=== PATIENT | female | born 1975 | race Caucasian/White ===

== ENCOUNTER 2017-12-04 09:58 | Emergency (ER) | END 2017-12-04 13:05 | disposition home or self-care (01) ==

== ENCOUNTER 2018-04-29 23:22 | Emergency (ER) | END 2018-04-30 04:30 | disposition home or self-care (01) ==

== ENCOUNTER 2018-09-17 14:24 | Emergency (ER) | payer MEDICAID ==
[~2018-09-17] VITALS: Wt 59.0 kg
[~2018-09-17 14:24] MED LIST: AMLO-147 PO; BECL10.62 IH; CHOL100062 PO; CYCL5TAB PO; FLUT9.9S NASAL; HYDR-4011 PO; IBUP-1544 PO; MAGN400T28 PO; MECL-77 PO; METR70GE15 VAG; OMEP20CA16 PO
[2018-09-17] MEDS ORDERED: SOD CHLORIDE 0.9% 500 ML IV STA (16:53)
[2018-09-17] MEDS ORDERED: ONDANSETRON 4 MG INJ IV STA (16:53)
[2018-09-17] MEDS ORDERED: morphine 4 MG/ML VIAL IV STA (16:53)
[2018-09-17] MEDS ORDERED: ENALAPRILAT 1.25 MG INJ IV ONE (17:00)
[2018-09-17] MEDS ORDERED: BENA40TA56 PO (17:55)
[2018-09-17] MEDS ORDERED: METR45CR2 TOP (17:58)
--- NOTE | 2018-09-17 20:13 | ERD ---
ER Documentation Chief Complaint Chief Complaint LOWER AP WITH NAUSEA/DIARRHEA RADIATES TO BACK X1DAY HPI 43-year-old woman has a history of abdominal pain presents with 2 days of lower abdominal pain and some mild low back pain. She denies obvious precipitating or alleviating factors but states she has had similar episodes in the past namely one episode about 6 months ago. Patient denies hematuria, no fevers or chills, no chest pain or shortness of breath ROS All systems reviewed and are negative except as per history of present illness. Medications Home Meds Active Scripts Docusate Sodium* (Colace*) 100 Mg Capsule, 100 MG PO TID, #12 CAP Prov:GEM FARIAS MD 09/17/18 Cephalexin* (Keflex*) 500 Mg Capsule, 500 MG PO QID for 5 Days, CAP Prov:GEM FARIAS MD 09/17/18 Naproxen* (Naprosyn*) 500 Mg Tablet, 500 MG PO BID PRN for PAIN AND/OR INFLAMMATION, #30 TAB Prov:GEM FARIAS MD 09/17/18 Hydrocodone/Acetaminophen ([place] 5-325 Tablet) 1 Each Tablet, 1 TAB PO Q6H PRN for PAIN, #15 TAB Prov:EVERTON DU DO 04/30/18 Ibuprofen* (Ibuprofen*) 800 Mg Tablet, 800 MG PO Q8 for 10 Days, TAB Prov:EVERTON DU DO 04/30/18 Reported Medications Metronidazole* (Metrocream*) 45 Gm Cream.gm., 1 APPLIC TOP QAM, TUB 09/17/18 Benazepril Hcl* (Benazepril Hcl*) 40 Mg Tablet, 40 MG PO DAILY, #30 TAB 09/17/18 Cyclobenzaprine Hcl* (Cyclobenzaprine Hcl*) 5 Mg Tablet, 5 MG PO TID, #90 TAB 04/30/18 Fluticasone Propionate (Flonase Allergy Relief) 9.9 Ml [place].susp, 1 SPRAY NASAL BID, #1 BOTTLE TO EACH NOSTRIL 04/30/18 Cholecalciferol* (Vitamin D3*) 1,000 Unit Tablet, 2000 UNIT PO DAILY, TAB 04/30/18 Beclomethasone Dipropionate (Qvar Redihaler (80 MCG)) 10.6 Gm Hfa.aeroba, 10.6 GM IH, INH 04/30/18 Omeprazole* (Omeprazole*) 20 Mg Capsule.dr, 20 MG PO DAILY, #30 CAP 04/30/18 Magnesium Oxide* (Magnesium Oxide*) 400 Mg Tablet, 400 MG PO DAILY, TAB 04/30/18 Meclizine Hcl* (Meclizine Hcl*) 25 Mg Tablet, 25 MG PO Q8H PRN for DIZZINESS, TAB 04/30/18 Discontinued Reported Medications Metronidazole* (Metrogel* Vaginal) 0.75% -70 Gram Gel.w.appl, 1 APPFUL VAG HS, TUB 04/30/18 Amlodipine Besylate* (Amlodipine Besylate*) 10 Mg Tablet, 10 MG PO DAILY, #30 TAB 04/30/18 Allergies Allergies: Coded Allergies: No Known Allergy (Verified , 09/17/18) PMhx/Soc Obesity, gastritis, hypertension History of Surgery: Yes () Anesthesia Reaction: No Hx Neurological Disorder: No Hx Respiratory Disorders: No Hx Cardiac Disorders: Yes (HTN) Hx Psychiatric Problems: No Hx Miscellaneous Medical Probl: Yes (stage 3 CKD, "new liver issue?", borderline DM) Hx Alcohol Use: No Hx Substance Use: No Hx Tobacco Use: No Smoking Status: Never smoker FmHx Family History: No diabetes Physical Exam Vitals Vital Signs Date Temp Pulse Resp B/P (MAP) Pulse Ox O2 O2 Flow FiO2 Time Delivery Rate 09/17/18 98.0 72 18 148/92 95 Room Air 20:57 (110) 09/17/18 99.2 80 22 234/119 96 14:26 (157) Physical Exam GENERAL: Well-developed, well-nourished, well-hydrated, in no apparent distress, looks nontoxic in appearance HEENT: Moist mucous membranes, pink conjunctiva, no cervical spine tenderness or step-off deformities, no goiter, no jaundice or icterus, extraocular movements intact without pain. No submandibular induration, and no pharyngeal erythema NEURO: Alert and oriented 3, cranial nerves II through XII intact bilaterally, pupils equal round reactive to light, no focal deficits or facial asymmetry, sensation intact distally Strength 5/5 in upper and lower extremities bilaterally CARDIAC: Regular rate and rhythm, no murmurs rubs or gallops LUNGS: Clear bilaterally no wheezing crackles or stridor ABDOMEN: Soft nontender, no guarding, no rigidity, no rebound, no psoas sign no obturator sign. Normoactive bowel sounds SKIN: Warm and dry to touch, no abrasions, contusions, or hematomas, no lacerations, no ecchymosis, no target lesions, and without ulcers EXTREMITIES: No clubbing cyanosis or edema, calves are bilaterally symmetrical, no Homans sign, no popliteal cord sign. Distal pulses equal and bilateral PSYCH: Normal affect without agitation or irritability Result Diagram: 09/17/18 1741 09/17/18 174 Results 24 hrs Laboratory Tests Test 09/17/18 17:39 09/17/18 17:41 09/17/18 18:53 Urine Color STRAW Urine Clarity SLIGHTLY CLOUDY Urine pH 7.0 Urine Specific [place] 1.009 Urine Ketones NEGATIVE mg/dL Urine Nitrite NEGATIVE mg/dL Urine Bilirubin NEGATIVE mg/dL Urine Urobilinogen NEGATIVE mg/dL Urine Leukocyte Esterase NEGATIVE [place]/ul Urine Microscopic RBC 4 /HPF Urine Microscopic WBC 3 /HPF Urine Squamous Epithelial Cells FEW /HPF Urine Bacteria FEW /HPF Urine Hemoglobin NEGATIVE mg/dL Urine Glucose NEGATIVE mg/dL Urine Total Protein 2+ mg/dl White Blood Count 9.8 10^3/ul Red Blood Count 4.77 10^6/ul Hemoglobin 12.3 g/dl Hematocrit 38.4 % Mean Corpuscular Volume 80.5 fl Mean Corpuscular Hemoglobin 25.8 pg Mean Corpuscular 32.0 g/dl Hemoglobin Concent Red Cell Distribution Width 13.9 % Platelet Count 246 10^3/UL Mean Platelet Volume 10.2 fl Immature Granulocytes % 0.400 % Neutrophils % 56.4 % Lymphocytes % 35.1 % Monocytes % 4.8 % Eosinophils % 2.9 % Basophils % 0.4 % Nucleated Red Blood Cells % 0.0 /100WBC Immature Granulocytes # 0.040 10^3/ul Neutrophils # 5.5 10^3/ul Lymphocytes # 3.4 10^3/ul Monocytes # 0.5 10^3/ul Eosinophils # 0.3 10^3/ul Basophils # 0.0 10^3/ul Nucleated Red Blood Cells # 0.0 10^3/ul Sodium Level 139 mmol/L Potassium Level 3.7 mmol/L Chloride Level 102 mmol/L Carbon Dioxide Level 26 mmol/L Anion Gap 11 Blood Urea Nitrogen 15 mg/dl Creatinine 1.13 mg/dl Est Glomerular Filtrat 53 mL/min Rate mL/min Glucose Level 135 mg/dl Calcium Level 9.1 mg/dl Total Bilirubin 0.1 mg/dl Direct Bilirubin 0.00 mg/dl Indirect Bilirubin 0.1 mg/dl Aspartate Amino 66 IU/L Transf (AST/SGOT) Alanine 141 IU/L Aminotransferase (ALT/SGPT) Alkaline Phosphatase 155 IU/L Total Protein 7.8 g/dl Albumin 4.2 g/dl Globulin 3.60 g/dl Albumin/Globulin Ratio 1.16 Lipase 75 U/L POC Beta HCG, Qualitative NEGATIVE Current Medications Medications Dose Sig/Dominic Start Time Status Last (Trade) Ordered Route PRN Stop Time Admin Dose Reason Admin Sodium 500 ml @ Q1H STAT 09/17/18 DC 09/17/18 Chloride 500 mls/hr IV 16:53 16:53 09/17/18 17:52 Morphine 4 mg ONCE STAT 09/17/18 DC 09/17/18 Sulfate IV 16:53 18:00 (morphine) 09/17/18 16:59 Ondansetron 4 mg ONCE STAT 09/17/18 DC 09/17/18 HCl (Zofran IV 16:53 18:00 Inj) 09/17/18 16:59 Enalaprilat 1.25 mg ONCE ONCE 09/17/18 DC 09/17/18 (Vasotec Iv) IV 17:00 18:01 09/17/18 17:01 Procedures/MDM IV line was established patient was placed on cardiac sonographer rhythm strip revealed a sinus rhythm at about 80 bpm with upright P and T waves. Patient was afebrile CT scan of the abdomen and pelvis was performed,IMPRESSION: 1. Moderate retained stool throughout the colon. Mild diverticulosis of the colon. No findings of acute diverticulitis. 2. The liver demonstrates decreased attenuation, consistent with hepatic steatosis. 3. No acute abnormality demonstrated in the abdomen and pelvis. 4. No new abnormality demonstrated when compared to the previous study. I administered 1 L normal saline IV, morphine 4 mg IV, Zofran 4 mg IV, and enalapril 1.25 mg IV for hypertension. CBC and electrolytes were unremarkable, liver function tests were normal, urinalysis was equivocal although given her lower abdominal pain and suprapubic discomfort I suspect early UTI and patient agrees. Differential diagnoses considered, included but not limited to acute coronary syndrome, pulmonary embolism, aortic dissection, abdominal aortic aneurysm, sepsis, stroke, meningitis, encephalitis, pneumonia, appendicitis, cholecystitis, bowel obstruction, pyelonephritis, nephrolithiasis, cystitis, as well as metabolic, hematologic, and electrolyte abnormalities. As well as abscess, cellulitis, fractures, and dislocations. Patient feels much better at this time, and vital signs are normal, symptoms bautista ve improved. I did give strict instructions to return to the ED if symptoms continue or worsen, patient will otherwise follow-up with primary care physician. Patient understood instructions and agreed to plan. Disclaimer: Inadvertent spelling and grammatical errors are likely due to EHR/dictation software use and do not reflect on the overall quality of patient care. Also, please note that the electronic time recorded on this note does not necessarily reflect the actual time of the patient encounter. Departure Diagnosis: Primary Impression: Abdominal pain Abdominal location: lower abdomen, unspecified Qualified Codes: R10.30 - Lower abdominal pain, unspecified Additional Impressions: Acute UTI Hypertension Hypertension type: essential hypertension Qualified Codes: I10 - Essential (primary) hypertension Condition: Good GEM FARIAS MD Sep 17, 2018 20:13
[2018-09-17] MEDS ORDERED: DOCU-144 PO (20:14)
[2018-09-17] MEDS ORDERED: CEPH-443 PO (20:14)
[2018-09-17] MEDS ORDERED: NAPR-985 PO (20:14)
[2018-09-17 20:57] VITALS: BP 148/92; PULSE 72; RESP 18
== END 2018-09-17 20:59 | disposition home or self-care (01) ==
LOC: E/R 14:24
DX: N39.0 Urinary tract infection, site not specified (principal); N18.3 Chronic kidney disease, stage 3 (moderate); I12.9 Hypertensive chronic kidney disease with stage 1 through stage 4 chronic kidney disease, or unspecified chronic kidney disease; E66.9 Obesity, unspecified
CPT/HCPCS: 36415; 74176; 80053; 81001; 81025; 83690; 85025; 87086; 96374; 96375; J2270; J2405; J7040; Z7502; Z7610

== ENCOUNTER 2019-01-29 23:57 | Emergency (ER) | payer MEDICAID ==
[~2019-01-29] VITALS: Ht 139.7 cm; Wt 58.6 kg
[~2019-01-29 23:57] MED LIST changes: -AMLO-147 PO; +BENA40TA56 PO; +CEPH-443 PO; +DOCU-144 PO; +METR45CR2 TOP; -METR70GE15 VAG; +NAPR-985 PO
[2019-01-30] VITALS: Ht 139.7 cm; Wt 58.6 kg
[2019-01-30] MEDS ORDERED: NICARDipine HCL 30 MG CAPSULE PO ONE (00:30)
--- NOTE | 2019-01-30 00:36 | ERD ---
ER Documentation Chief Complaint Chief Complaint ANAYA X'S 3 DAYS; TINGLING ON R SIDE OF BODY HPI This is a 43-year-old female with a past medical history of hypertension, prediabetes, obesity, gastritis, chronic kidney disease, previous liver disease, who is presenting with 3 days of a waxing and waning but progressively worsening headache. She describes it as right-sided, moderate in severity, throbbing, pulsating, not the worst of her life. The patient endorses nausea but no vomiting. She does endorse photophobia and phonophobia as well. She denies double or blurry vision. Her visual acuity is normal. The patient does not endorse a personal or family history of cerebral aneurysm. The patient does also endorse a tingling sensation to the right side of her face and into her fingertips. That said, she does not endorse any weakness or numbness to the face or extremities. The patient denies feeling sick recently. The patient denies fever or chills. The patient does not endorse neck or back pain. The patient denies lightheadedness or dizziness. The patient has had no chest pain or trouble breathing. The patient denies nausea or vomiting. The patient denies abdominal pain. The patient denies changes to bowel movements or urination. ROS All systems reviewed and are negative except as per history of present illness. Medications Home Meds Active Scripts Docusate Sodium* (Colace*) 100 Mg Capsule, 100 MG PO TID, #12 CAP Prov:GEM FARIAS MD 09/17/18 Cephalexin* (Keflex*) 500 Mg Capsule, 500 MG PO QID for 5 Days, CAP Prov:GEM FARIAS MD 09/17/18 Naproxen* (Naprosyn*) 500 Mg Tablet, 500 MG PO BID PRN for PAIN AND/OR INFLAMMATION, #30 TAB Prov:GEM FARIAS MD 09/17/18 Hydrocodone/Acetaminophen ([place] 5-325 Tablet) 1 Each Tablet, 1 TAB PO Q6H PRN for PAIN, #15 TAB Prov:EVERTON DU DO 04/30/18 Ibuprofen* (Ibuprofen*) 800 Mg Tablet, 800 MG PO Q8 for 10 Days, TAB Prov:EVERTON DU DO 04/30/18 Reported Medications Metronidazole* (Metrocream*) 45 Gm Cream.gm., 1 APPLIC TOP QAM, TUB 09/17/18 Benazepril Hcl* (Benazepril Hcl*) 40 Mg Tablet, 40 MG PO DAILY, #30 TAB 09/17/18 Cyclobenzaprine Hcl* (Cyclobenzaprine Hcl*) 5 Mg Tablet, 5 MG PO TID, #90 TAB 04/30/18 Fluticasone Propionate (Flonase Allergy Relief) 9.9 Ml [place].susp, 1 SPRAY NASAL BID, #1 BOTTLE TO EACH NOSTRIL 04/30/18 Cholecalciferol* (Vitamin D3*) 1,000 Unit Tablet, 2000 UNIT PO DAILY, TAB 04/30/18 Beclomethasone Dipropionate (Qvar Redihaler (80 MCG)) 10.6 Gm Hfa.aeroba, 10.6 GM IH, INH 04/30/18 Omeprazole* (Omeprazole*) 20 Mg Capsule.dr, 20 MG PO DAILY, #30 CAP 04/30/18 Magnesium Oxide* (Magnesium Oxide*) 400 Mg Tablet, 400 MG PO DAILY, TAB 04/30/18 Meclizine Hcl* (Meclizine Hcl*) 25 Mg Tablet, 25 MG PO Q8H PRN for DIZZINESS, TAB 04/30/18 Allergies Allergies: Coded Allergies: No Known Allergy (Verified , 09/17/18) PMhx/Soc History of Surgery: Yes () Anesthesia Reaction: No Hx Neurological Disorder: No Hx Respiratory Disorders: No Hx Cardiac Disorders: Yes (Hypertension, prediabetes) Hx Psychiatric Problems: No Hx Miscellaneous Medical Probl: Yes (stage 3 CKD) Hx Alcohol Use: No Hx Substance Use: No Hx Tobacco Use: No Smoking Status: Never smoker FmHx Family History: No diabetes Physical Exam Vitals Vital Signs Date Temp Pulse Resp B/P (MAP) Pulse Ox O2 O2 Flow FiO2 Time Delivery Rate 01/30/19 99.6 102 18 223/126 100 00:00 (158) Physical Exam Const: No apparent distress, well-developed, well-nourished Head: Normocephalic, Atraumatic Eyes: Normal Conjunctiva. Extraocular movements intact. Pupils equal, round and reactive to light ENT: Normal External Ears, Nose and Mouth. Neck: Full range of motion. No meningismus. Resp: Clear to auscultation bilaterally, No wheezes, rales or rhonchi Cardio: Regular rate and rhythm. No murmurs, rubs or gallops Abd: Soft, non tender, non distended. Normal bowel sounds Skin: No petechiae or rashes Back: No midline tenderness. No CVA tenderness Ext: No cyanosis, or edema Neur: Awake and alert, oriented 4. Cranial nerves intact. No facial droop. Normal strength, sensation and coordination. Psych: Normal Mood and Affect Result Diagram: 01/30/191 01/30/19 0021 Results 24 hrs Laboratory Tests Test 01/30/19 00:21 White Blood Count 10.2 10^3/ul Red Blood Count 4.71 10^6/ul Hemoglobin 12.6 g/dl Hematocrit 37.7 % Mean Corpuscular Volume 80.0 fl Mean Corpuscular Hemoglobin 26.8 pg Mean Corpuscular Hemoglobin Concent 33.4 g/dl Red Cell Distribution Width 15.2 % Platelet Count 272 10^3/UL Mean Platelet Volume 10.5 fl Immature Granulocytes % 0.200 % Neutrophils % 54.3 % Lymphocytes % 36.6 % Monocytes % 5.3 % Eosinophils % 3.1 % Basophils % 0.5 % Nucleated Red Blood Cells % 0.0 /100WBC Immature Granulocytes # 0.020 10^3/ul Neutrophils # 5.6 10^3/ul Lymphocytes # 3.8 10^3/ul Monocytes # 0.5 10^3/ul Eosinophils # 0.3 10^3/ul Basophils # 0.1 10^3/ul Nucleated Red Blood Cells # 0.0 10^3/ul Sodium Level 142 mmol/L Potassium Level 4.0 mmol/L Chloride Level 107 mmol/L Carbon Dioxide Level 26 mmol/L Anion Gap 9 Blood Urea Nitrogen 18 mg/dl Creatinine 1.43 mg/dl Est Glomerular Filtrat Rate mL/min 40 mL/min Glucose Level 190 mg/dl Calcium Level 9.2 mg/dl Troponin I < 0.012 ng/ml B-Type Natriuretic Peptide 167 PG/ML Current Medications Medications Dose Sig/Dominic Start Time Status Last (Trade) Ordered Route PRN Stop Time Admin Dose Reason Admin Nicardipine 30 mg ONCE ONCE 01/30/19 DC 01/30/19 HCl PO 00:30 01/30/19 00:17 (Cardene) 00:31 Procedures/MDM MDM The patient's presentation warrants further investigation. Previous medical records, if available, were reviewed. LABS The patient's laboratory testing was obtained and reviewed. No emergent treatment was required unless described below. CBC: No E/o systemic infection or severe anemia or thrombocytopenia Chemistry: No E/o severe acidosis or alkalosis or diabetic ketoacidosis. Mildly elevated creatinine with a known history of chronic kidney disease. Troponin: No E/o acute ischemia BNP: Mildly elevated in an indeterminate range without any clinical suspicion for heart failure EKG EKG read by me: Rate/Rhythm: Regular rate and rhythm at a rate of 76 bpm Intervals: Normal [place]: Normal Impression: LVH. No evidence of acute ischemia or arrhythmia IMAGING Imaging and Radiology interpretation reviewed. CXR 1V Interpreted by me Soft Tissue: No acute abnormalities Bones: No acute abnormalities Mediastinum/Cardiac Silhouette: Unremarkable. No widened mediastinum. Lungs: No acute abnormalities. Normal pulmonary vasculature. No pneumothorax. No pulmonary edema. Clear costal diaphragmatic angles. No pleural effusions. No opacity or consolidations concerning for pneumonia. CT Head FINDINGS: The ventricles have a normal size, shape and position. There is no evidence for mass effect or midline shift. There are no intracranial areas of abnormal attenuation. There is no evidence for acute intra or extra-axial blood. The bony calvarium is intact. The partially visualized paranasal sinuses and mastoid air cells are without significant abnormal soft tissue. IMPRESSION: Unremarkable noncontrast CT scan of the brain. Electronically viewed and signed by Nasir Ruiz MD, on 01/30/2019 01:50 TREATMENT/DISPOSITION The patient presents with a headache. The patient reports that her headache started before her significantly elevated blood pressure today. Differential diagnosis includes migraine, tension headache, cluster headache. The patient has no focal deficits. The neurologic exam is reassuring. I have decreased suspicion for cerebral ischemia. There was no trauma or injury. There is no personal or family history of cerebral aneurysm. This is not the worst headache of the patient's life. It was not acutely severe. It is been progressive in nature. I have decreased suspicion for SAH or other ICH. I have low suspicion for temporal arteritis, cavernous venous thrombosis, subdural hematoma, epidural hematoma, meningitis. The patient's blood pressure was elevated at greater than 120/80 while in the emergency department. The patient did require dose of Cardene to get her blood pressure down to nonemergent levels. The patient was evaluated fully for the possibility of endorgan damage related to her hypertension. The patient was otherwise stable with no evidence of hypertensive urgency or emergency. The patient does not require admission for blood pressure control. I have discussed with the patient the risks of hypertension. I have instructed the patient to return to the ER for any new or worsening symptoms including chest pain, shortness of breath, headache, blurred vision, confusion, nausea, vomiting or LOC. I have advised the patient to follow up with the primary care physician for outpatient monitoring and treatment for hypertension in 1-3 days. The patient was treated with IV fluid, Reglan and Benadryl with some improvement of her symptoms. After the CT head was read as negative, the patient was also given a dose of Toradol. DISCHARGE Upon reevaluation of the patient, symptoms have improved. No emergent diagnoses were identified. At this time, I feel that the patient stable for discharge. The patient was instructed to follow-up with a primary care physician in 1-3 days. The patient will be given strict precautions with which to return to the emergency department. Prescriptions: None Disclaimer: Inadvertent spelling and grammatical errors are likely due to EHR/dictation software use and do not reflect on the overall quality of patient care. Note that the electronic time recorded on this note does not necessarily reflect the actual time of the patient encounter. Departure Diagnosis: Primary Impression: Headache Headache type: unspecified Headache chronicity pattern: acute headache Intractability: not intractable Qualified Codes: R51 - Headache Additional Impressions: Hypertension Hypertension type: essential hypertension Qualified Codes: I10 - Essential (primary) hypertension Chronic kidney disease Chronic kidney disease stage: unspecified stage Qualified Codes: N18.9 - Chronic kidney disease, unspecified Condition: Stable Patient Instructions: Hypertension, Established, Self-Care for Headaches Additional Instructions: Thank you for for coming to [facility] for your care today. Please ask your nurse or provider if you have questions about your care today and do not leave until all your questions have been answered. Please use any medications given as directed and follow-up with your doctor (or the doctor you were referred to) in the next 1-3 days. If you do not have a primary care doctor you may follow up at the [facility] or [facility] (listed below). You may also use motrin and tylenol as needed for fever and/or pain unless instructed otherwise by your provider or nurse. Indications for more urgent follow-up have been discussed, but you may return to the Emergency Department at ANY time for any worrisome or worsening symptoms. If you have abdominal pain, please know that no test or exam you received is perfect and you should follow up within 8 hours for continued pain. If you had any imaging studies today, such as an X-Ray or CT Scan, these studies will be reviewed later by a radiologist. You will be called if there are important findings that were not identified today, so make sure the contact information you provided at registration is correct. If you received any narcotic pain control medicine today, such as Vicodin, Morphine or Dilaudid, your coordination and judgment may be affected for a number of hours. Please do not drive or operate heavy machinery, and you may want someone to assist you at home. If you were given a prescription for narcotic medication, be aware that it is very addictive- use sparingly and only if necessary. PLEASE SEEK FURTHER EVALUATION AND MANAGEMENT AT YOUR DOCTORS OFFICE WITHIN THE NEXT 1-3 DAYS. IT IS YOUR RESPONSIBILITY TO MAKE AN APPOINTMENT FOR FOLOW-UP CARE. IF YOU HAVE A PRIMARY DOCTOR, PLEASE CALL THEIR OFFICE TO SCHEDULE AN APPOINTMENT FOR FOLLOW UP. IF YOU DO NOT HAVE A PRIMARY DOCTOR YOU CAN CALL OUR PHYSICIAN REFERRAL HOTLINE AT IF YOU CAN NOT AFFORD TO SEE A PHYSICIAN YOU CAN CHOSE FROM THE FOLLOWING [facility]: [facility] [address] [facility]. [facility] [address] [facility] [place] [address] [facility] [facility] [address] [facility] [address] [facility]. [facility]. [address] MD Jan 30, 2019 00:36
[2019-01-30] MEDS: KETOROLAC 15 MG INJ IV STA ×2 (02:22→02:45)
[2019-01-30] MEDS ORDERED: SOD CHLORIDE 0.9% 500 ML IV ONE (02:30)
[2019-01-30 02:56] VITALS: PULSE 73; RESP 18
[2019-01-30 03:02] VITALS: BP 143/94
== END 2019-01-30 03:03 | disposition home or self-care (01) ==
LOC: E/R 23:57
DX: I12.9 Hypertensive chronic kidney disease with stage 1 through stage 4 chronic kidney disease, or unspecified chronic kidney disease (principal); N18.3 Chronic kidney disease, stage 3 (moderate); E66.9 Obesity, unspecified; Z68.30 Body mass index [BMI] 30.0-30.9, adult
CPT/HCPCS: 36415; 70450; 71045; 80048; 83880; 84484; 85025; 93005; 96374; J1885; J7040; Z7502; Z7610

== ENCOUNTER 2019-02-14 19:50 | Emergency (ER) | payer MEDICAID ==
[~2019-02-14] VITALS: Ht 147.3 cm; Wt 58.0 kg
[~2019-02-14 19:50] MED LIST changes: +CIPR500T4 PO; +PHEN-538 PO
[2019-02-14 20:05] VITALS: BP 190/94; PULSE 98; RESP 18; Ht 147.3 cm; Wt 58.0 kg
[2019-02-14] MEDS ORDERED: ACETAMINOPHEN 325 MG TAB PO ONE (22:30)
[2019-02-14] MEDS ORDERED: CEFTRIAXONE 1 GM INJ IM ONE (23:00)
[2019-02-14] MEDS ORDERED: LIDOCAINE 1% (MDV) 20 ML INJ SC ONE (23:00)
--- NOTE | 2019-02-16 05:50 | ERD ---
ER Documentation Chief Complaint Chief Complaint states blood in urine/painful urination x 1 day HPI 44-year-old female presents emergency department complaining of hematuria and dysuria with burning on urination for 1 day. Symptoms are moderate in severity. She took no medication for relief of symptoms. She denies any fevers, chills, abdominal pain, or other symptoms currently. ROS All systems reviewed and are negative except as per history of present illness. Medications Home Meds Active Scripts Phenazopyridine Hcl* (Pyridium*) 200 Mg Tab, 200 MG PO TID PRN for URINARY PAIN, #6 TAB Prov:SUMMER HERRERA PA-C 02/14/19 Ciprofloxacin Hcl* (Ciprofloxacin Hcl*) 500 Mg Tablet, 500 MG PO BID for 10 Days, TAB Prov:SUMMER HERRERA PA-C 02/14/19 Docusate Sodium* (Colace*) 100 Mg Capsule, 100 MG PO TID, #12 CAP Prov:GEM FARIAS MD 09/17/18 Cephalexin* (Keflex*) 500 Mg Capsule, 500 MG PO QID for 5 Days, CAP Prov:GEM FARIAS MD 09/17/18 Naproxen* (Naprosyn*) 500 Mg Tablet, 500 MG PO BID PRN for PAIN AND/OR INFLAMMATION, #30 TAB Prov:GEM FARIAS MD 09/17/18 Hydrocodone/Acetaminophen ([place] 5-325 Tablet) 1 Each Tablet, 1 TAB PO Q6H PRN for PAIN, #15 TAB Prov:EVERTON DU DO 04/30/18 Ibuprofen* (Ibuprofen*) 800 Mg Tablet, 800 MG PO Q8 for 10 Days, TAB Prov:EVERTON DU DO 04/30/18 Reported Medications Metronidazole* (Metrocream*) 45 Gm Cream.gm., 1 APPLIC TOP QAM, TUB 09/17/18 Benazepril Hcl* (Benazepril Hcl*) 40 Mg Tablet, 40 MG PO DAILY, #30 TAB 09/17/18 Cyclobenzaprine Hcl* (Cyclobenzaprine Hcl*) 5 Mg Tablet, 5 MG PO TID, #90 TAB 04/30/18 Fluticasone Propionate (Flonase Allergy Relief) 9.9 Ml [place].susp, 1 SPRAY NASAL BID, #1 BOTTLE TO EACH NOSTRIL 04/30/18 Cholecalciferol* (Vitamin D3*) 1,000 Unit Tablet, 2000 UNIT PO DAILY, TAB 04/30/18 Beclomethasone Dipropionate (Qvar Redihaler (80 MCG)) 10.6 Gm Hfa.aeroba, 10.6 GM IH, INH 04/30/18 Omeprazole* (Omeprazole*) 20 Mg Capsule.dr, 20 MG PO DAILY, #30 CAP 04/30/18 Magnesium Oxide* (Magnesium Oxide*) 400 Mg Tablet, 400 MG PO DAILY, TAB 04/30/18 Meclizine Hcl* (Meclizine Hcl*) 25 Mg Tablet, 25 MG PO Q8H PRN for DIZZINESS, TAB 04/30/18 Allergies Allergies: Coded Allergies: No Known Allergy (Verified , 09/17/18) PMhx/Soc History of Surgery: Yes () Anesthesia Reaction: No Hx Neurological Disorder: No Hx Respiratory Disorders: No Hx Cardiac Disorders: Yes (Hypertension, prediabetes) Hx Psychiatric Problems: No Hx Miscellaneous Medical Probl: Yes (stage 3 CKD) Hx Alcohol Use: No Hx Substance Use: No Hx Tobacco Use: No Smoking Status: Never smoker Physical Exam Vitals Vital Signs Date Temp Pulse Resp B/P (MAP) Pulse Ox O2 O2 Flow FiO2 Time Delivery Rate 02/14/19 37.8 22:23 02/14/19 100.0 98 18 190/94 98 20:05 (126) Physical Exam Const: No acute distress Head: Atraumatic Eyes: Normal Conjunctiva ENT: Normal External Ears, Nose and Mouth. Neck: Full range of motion. No meningismus. Resp: Clear to auscultation bilaterally Cardio: Regular rate and rhythm, no murmurs Abd: Soft, non tender, non distended. Normal bowel sounds Skin: No petechiae or rashes Back: No midline or flank tenderness Ext: No cyanosis, or edema Neur: Awake and alert Psych: Normal Mood and Affect Results 24 hrs Laboratory Tests Test 02/14/19 22:19 02/14/19 22:20 Bedside Urine pH (LAB) 5.5 Bedside Urine Protein (LAB) 3+ Bedside Urine Glucose (UA) Negative Bedside Urine Ketones (LAB) Negative Bedside Urine Blood 3+ Bedside Urine Nitrite (LAB) Negative Bedside Urine Leukocyte Esterase (L 1+ POC Beta HCG, Qualitative NEGATIVE Current Medications Medications Dose Sig/Dominic Start Time Status Last (Trade) Ordered Route PRN Stop Time Admin Dose Reason Admin 650 mg ONCE ONCE 02/14/19 DC 02/14/19 Acetaminophen PO 22:30 22:23 (Tylenol 02/14/19 22:31 Tab) Ceftriaxone 1 gm ONCE ONCE 02/14/19 DC 02/14/19 Sodium IM 23:00 23:04 (Rocephin) 02/14/19 23:01 Lidocaine 20 ml ONCE ONCE 02/14/19 DC 02/14/19 (Xylocaine SC 23:00 23:04 1% (Mdv) 20 02/14/19 23:01 ml) Procedures/MDM 44-year-old female presenting to the emergency department with signs and symptoms most consistent with uncomplicated urinary tract infection. Currently, there is no evidence to suggest pyelonephritis, sepsis, or other emergency. Patient will be discharged home with a prescription for antibiotics and she should return here for any new or worsening or concerning symptoms. Patient understands and agrees with the diagnosis and plan and return precautions. Departure Diagnosis: Primary Impression: UTI (urinary tract infection) Condition: Fair Patient Instructions: Understanding Urinary Tract Infections (UTIs) Referrals: COMM[facility]ITY CLIN[facility] YOU HAVE RECEIVED A MEDICAL SCREENING EXAM AND THE RESULTS INDICATE THAT YOU DO NOT HAVE A CONDITION THAT REQUIRES URGENT TREATMENT IN THE EMERGENCY DEPARTMENT. FURTHER EVALUATION AND TREATMENT OF YOUR CONDITION CAN WAIT UNTIL YOU ARE SEEN IN YOUR DOCTORS OFFICE WITHIN THE NEXT 1-2 DAYS. IT IS YOUR RESPONSIBILITY TO MAKE AN APPOINTMENT FOR FOLOW-UP CARE. IF YOU HAVE A PRIMARY DOCTOR --you should call your primary doctor and schedule an appointment IF YOU DO NOT HAVE A PRIMARY DOCTOR YOU CAN CALL OUR PHYSICIAN REFERRAL HOTLINE AT IF YOU CAN NOT AFFORD TO SEE A PHYSICIAN YOU CAN CHOSE FROM THE FOLLOWING [facility] CLINICS [facility] [address] [facility]. [facility] [address] [facility]. [facility] [address] [facility] [facility] [address] [facility]. [facility] [address] [facility] [facility]. [address] Additional Instructions: Call your primary care doctor TOMORROW for an appointment during the next 1-2 days.See the doctor sooner or return here if your condition worsens before your appointment time. SUMMER HERRERA PA-C Feb 16, 2019 05:50
== END 2019-02-14 23:24 | disposition home or self-care (01) ==
LOC: FTE 19:50
DX: N39.0 Urinary tract infection, site not specified (principal); N18.3 Chronic kidney disease, stage 3 (moderate); I12.9 Hypertensive chronic kidney disease with stage 1 through stage 4 chronic kidney disease, or unspecified chronic kidney disease
CPT/HCPCS: 81003; 81025; 87086; 96372; J0696; Z7502; Z7610